=== PATIENT | male | born 1955 | race Caucasian/White ===

== ENCOUNTER → 2022-03-11 08:59 | Outpatient (BNVA) | payer MEDICARE, SELFPAY | PROVIDERS: Visit Provider Student in an Organized Health Care Education/Training Program | DX: E66.01 Morbid (severe) obesity due to excess calories (principal); M17.11 Unilateral primary osteoarthritis, right knee; M17.12 Unilateral primary osteoarthritis, left knee | CPT/HCPCS: 99203 ==

== ENCOUNTER → 2022-03-23 09:40 | Outpatient (BNVA) | payer MEDICARE, SELFPAY | PROVIDERS: PCP Nurse Practitioner Family; Referring Provider Nurse Practitioner Family; Visit Provider Physician Assistant | DX: M17.11 Unilateral primary osteoarthritis, right knee (principal); M17.12 Unilateral primary osteoarthritis, left knee | CPT/HCPCS: 20610; J3304 ==

== ENCOUNTER → 2022-07-26 08:36 | Outpatient (BNVA) | payer MEDICARE, SELFPAY | PROVIDERS: PCP Nurse Practitioner Family; Referring Provider Nurse Practitioner Family; Visit Provider Physician Assistant | DX: M17.11 Unilateral primary osteoarthritis, right knee (principal); M17.12 Unilateral primary osteoarthritis, left knee | CPT/HCPCS: 20610; J1040 ==

== ENCOUNTER → 2022-10-25 12:55 | Outpatient (BNVA) | payer MEDICARE, SELFPAY | PROVIDERS: PCP Nurse Practitioner Family; Referring Provider Nurse Practitioner Family; Visit Provider Student in an Organized Health Care Education/Training Program | DX: M17.11 Unilateral primary osteoarthritis, right knee (principal); M17.12 Unilateral primary osteoarthritis, left knee | CPT/HCPCS: 20610; J1040 ==

== ENCOUNTER → 2023-01-24 13:05 | Outpatient (BNVA) | payer MEDICARE, SELFPAY | PROVIDERS: PCP Nurse Practitioner Family; Referring Provider Nurse Practitioner Family; Visit Provider Student in an Organized Health Care Education/Training Program | DX: M17.11 Unilateral primary osteoarthritis, right knee (principal); M17.12 Unilateral primary osteoarthritis, left knee | CPT/HCPCS: 20610; J1040 ==

== ENCOUNTER → 2023-04-29 08:58 | Outpatient (BNVA) | payer MEDICARE, SELFPAY | PROVIDERS: PCP Nurse Practitioner Family; Referring Provider Nurse Practitioner Family | DX: M17.11 Unilateral primary osteoarthritis, right knee (principal); M17.12 Unilateral primary osteoarthritis, left knee | CPT/HCPCS: 20610; J1040 ==

== ENCOUNTER → 2023-08-08 08:15 | Outpatient (BNVA) | payer MEDICARE, SELFPAY | PROVIDERS: PCP Nurse Practitioner Family; Referring Provider Nurse Practitioner Family; Visit Provider Student in an Organized Health Care Education/Training Program | DX: M17.11 Unilateral primary osteoarthritis, right knee (principal); M17.12 Unilateral primary osteoarthritis, left knee | CPT/HCPCS: 20610; J1040 ==

== ENCOUNTER → 2023-11-10 08:17 | Outpatient (BNVA) | payer MEDICARE, SELFPAY | PROVIDERS: PCP Nurse Practitioner Family; Referring Provider Nurse Practitioner Family; Visit Provider Student in an Organized Health Care Education/Training Program | DX: M17.11 Unilateral primary osteoarthritis, right knee (principal); M17.12 Unilateral primary osteoarthritis, left knee | CPT/HCPCS: 20610; J1010 ==

== ENCOUNTER → 2024-02-13 07:53 | Outpatient (BNVA) | payer MEDICARE, SELFPAY | PROVIDERS: PCP Nurse Practitioner Family; Referring Provider Nurse Practitioner Family; Visit Provider Student in an Organized Health Care Education/Training Program | DX: M17.11 Unilateral primary osteoarthritis, right knee (principal); M17.12 Unilateral primary osteoarthritis, left knee | CPT/HCPCS: 20610; J1010 ==

== ENCOUNTER → 2024-05-14 07:48 | Outpatient (BNVA) | payer MEDICARE, SELFPAY | PROVIDERS: PCP Nurse Practitioner Family; Referring Provider Nurse Practitioner Family; Visit Provider Student in an Organized Health Care Education/Training Program ==

== ENCOUNTER → 2024-06-11 07:59 | Outpatient (BNVA) | payer MEDICARE, SELFPAY | PROVIDERS: PCP Nurse Practitioner Family; Referring Provider Nurse Practitioner Family | DX: L03.115 Cellulitis of right lower limb (principal); L97.911 Non-pressure chronic ulcer of unspecified part of right lower leg limited to breakdown of skin; R60.0 Localized edema; E66.9 Obesity, unspecified; M17.11 Unilateral primary osteoarthritis, right knee; M17.12 Unilateral primary osteoarthritis, left knee | CPT/HCPCS: 20610; J1010 ==

== ENCOUNTER → 2024-09-10 07:56 | Outpatient (BNVA) | payer MEDICARE, SELFPAY | PROVIDERS: PCP Nurse Practitioner Family; Referring Provider Nurse Practitioner Family; Visit Provider Student in an Organized Health Care Education/Training Program | DX: L03.115 Cellulitis of right lower limb (principal); M17.11 Unilateral primary osteoarthritis, right knee; M17.12 Unilateral primary osteoarthritis, left knee | CPT/HCPCS: 20610; 99215; J1010 ==

== ENCOUNTER 2025-01-24 09:06 | Outpatient (CLI) | payer MEDICARE, SELFPAY ==
--- NOTE | 2025-01-24 08:45 | DI.RAD_ITS ---
Exam(s) XR KNEE LT 1V XR STANDING ALIGNMENT EXAM: XR STANDING ALIGNMENT and XR knee LT 1 V CLINICAL HISTORY: OA L KNEE. TECHNIQUE: 2D digital imaging was performed. Five images were obtained. COMPARISON: CR JOINT TEAM STANDING ALIGNMENT AP LAT SCHUSS SKYLINE BILAT from 03/11/2015 CR,DX Knee L from 03/20/2019 CR XR KNEE 1-2 VIEWS RIGHT (GENERIC) from 03/20/2019 CR Knee RT from 11/18/2020 FINDINGS: BONES: Evaluation of the hips is limited secondary to patient's body habitus. In the right knee, there is marked narrowing of the lateral femoral tibial joint. There is also narrowing seen medially. Prominent osteophytes are seen at the lateral femoral tibial joint. In the left knee, there is marked narrowing of the lateral femoral tibial joint. Osteophytes are seen predominantly laterally and at the patellofemoral joint. There is a joint effusion present. There are postsurgical changes seen in the distal tibia and fibula. The ankles are well maintained.There is no significant leg length dis crepancy. SOFT TISSUE: Atherosclerotic calcification is present. IMPRESSION: Marked osteoarthritis of the knees. DATA REPOSITORY: RADIATION DOSE DELIVERED:
== END 2025-01-24 09:07 | disposition home or self-care (01) ==
LOC: DIORS 09:06
PROVIDERS: PCP Nurse Practitioner Family; Referring Provider Nurse Practitioner Family; Visit Provider Student in an Organized Health Care Education/Training Program
DX: Z01.818 Encounter for other preprocedural examination (principal); M17.12 Unilateral primary osteoarthritis, left knee; E11.9 Type 2 diabetes mellitus without complications; I48.91 Unspecified atrial fibrillation; Z79.01 Long term (current) use of anticoagulants
CPT/HCPCS: 99024; 73560; 77073

== ENCOUNTER 2025-01-24 12:17 | Outpatient (REF) | payer MEDICARE, SELFPAY ==
[2025-01-24 15:54] LABS: HCT 43.1 % (40.0-50.0); HGB 13.8 g/dL (13.5-17.5); MCH 29.1 pg (27.0-33.0); MCHC 32.0 % (32.0-36.0); MCV 91 fL (80-95); MPV 11.6 fL (8.0-11.0); Platelet Count 238 10^3/uL (130-400); RBC 4.75 10^6/uL (4.36-5.78); RDW 13.9 % (11.8-14.1); RDW-SD 46.6 fL; WBC 7.70 10^3/uL (4.4-10.8)
[2025-01-24 16:01] LABS: Anion Gap 11.4 mmol/L (3-11); BUN 19 mg/dL (7-18); CO2 24.6 mmol/L (21.0-32.0); Calcium 9.6 mg/dL (8.5-10.1); Chloride 105 mmol/L (98-107); Estimated GFR 91.31 (mL/min/1.73m2); Glucose 104 mg/dL (74-106); Potassium 4.2 mmol/L (3.5-5.1); Sodium 141 mmol/L (136-145)
== END 2025-01-24 12:18 | disposition home or self-care (01) ==
LOC: LBN 12:17
PROVIDERS: PCP Nurse Practitioner Family; Visit Provider Student in an Organized Health Care Education/Training Program
DX: M17.11 Unilateral primary osteoarthritis, right knee (principal); Z01.818 Encounter for other preprocedural examination
CPT/HCPCS: 80048; 85027

== ENCOUNTER 2025-02-13 07:46 | Day surgery (SDC) | payer MEDICARE, SELFPAY ==
[2025-02-13] VITALS (28 sets, daily range): BP systolic 102–165; BP diastolic 62–142; PULSE 61–105; RESP 11–20; TEMP 36–36.6; O2SAT 92–98; BMI 50.6
--- NOTE | 2025-02-13 07:31 | PDOC.DSDIS_ITS ---
Date of service: 02/13/25 Discharge Plan Disposition Patient Disposition: Home Condition: Good Discharge Details Reason For Visit: L TKR Attending Provider: Terry Salcedo Primary Care Provider: Emilia Putnam Home Meds and New Rx's Prescriptions: New celecoxib 200 mg capsule 200 mg PO BID Qty: 60 0RF acetaminophen 500 mg tablet 1,000 mg PO TID Qty: 90 3RF pantoprazole 40 mg tablet,delayed release (DR/EC) 40 mg PO DAILY Qty: 14 0RF dexamethasone 4 mg tablet 4 mg PO DAILY Qty: 2 0RF docusate sodium 100 mg capsule 100 mg PO BID PRNQty: 28 0RF gabapentin 300 mg capsule 300 mg PO QHS Qty: 14 0RF oxycodone 5 mg tablet 5 mg PO Q4H PRNQty: 18 0RF Continued losartan 100 mg tablet 100 mg PO DAILY Eliquis 5 mg tablet 5 mg PO BID diltiazem HCl 240 mg capsule,extended release 24hr 240 mg PO DAILY atorvastatin 40 mg tablet 40 mg PO DAILY vitamin B complex [B Complex-Vitamin B12] Tablet 1 tab PO DAILY One-A-Day Men's 50 Plus(vit K) 400-20-370 mcg tablet 1 tab PO BID [id number]-rdac-copper-albert [Citracal-D3 Maximum Plus] 325 mg-12.5 mcg -2.75 mg tablet 1 tab PO BID carvedilol 6.25 mg tablet 6.25 mg PO BID Rx Instructions: must administer with a meal/food furosemide [Lasix] 40 mg tablet 60 mg PO DAILY naltrexone 50 mg tablet 25 mg PO BID bupropion HCl 150 mg tablet sustained-release 12 hr 150 mg PO QAM Discharge Instructions Additional Instructions: Total Knee Discharge Instructions Activity: The most important activity is to walk and to work on gentle motion (both flexion and extension). You should try to take short walks a few times a day. It is important that when resting you work on keeping the knee straight. Avoid putting a pillow behind the knee as this will encourage flexion. Work on range of motion exercises as provided by Physical Therapy. - Start outpatient physical therapy within 2 weeks. - You should wear the MAYURI hose on both legs for 2 weeks. You may remove these at night. You may also use any compression sock in place of the MAYURI hose. - Utilize [employer] to review exercises, see videos on exercises and obtain basic information pertaining to your surgery and your recovery. Dressing: Remove the Kevin wrap by 2 days after your surgery and put on the MAYURI stocking given to you from the hospital. Keep the surgical dressing (underneath the KEVIN wrap) in place for at least one week. After the first week it may be removed and replaced with light gauze and tape or nothing. The wound and dressing may get wet after 3 days but avoid soaking the dressing or otherwise it will need to be changed. Many people prefer covering the dressing with cling wrap (saran wrap) to minimize it from getting soaked. If it gets wet, just pat dry. If it starts to peel off then it will need to be changed. Medications: - You should take Tylenol and anti-inflammatory Celebrex as your primary pain control medications. If the Celebrex is too expensive or not covered, please call the office for another alternative (Advil/Ibuprofen or Naproxen/Aleve) - You have been prescribed a stronger pain medication Oxycodone for breakthrough pain, take as needed as prescribed. - You have also been prescribed a stomach acid reduction agent Pantoprozole to help reduce stomach acid and reflux. - You have been prescribed Gabapentin to take at night for restlessness and nerve pain. - You will be taking your apixaban for DVT prevention unless instructed otherwise. - You have also been prescribed Decadron to take to control post-operative nausea and pain. You will start this tomorrow. - If you have constipation you should take Colace or Miralax (both [id number]-miwtioq). It takes most people 3-4 days to have a bowel movement. Follow-up: 2 weeks If you have any acute concerns or questions, please do not hesitate to contact the office at [phone]. You may contact Dr. Salcedo with any questions after hours through the hospital at [phone] or on his cell phone at [phone]. Stand Alone Forms: Anesthesia Discharge InstRosie Asif.Nerve Block Instructions, Jacob Marinelli ([facility]) Referrals: Terry Salcedo MD [ [facility] STAFF PHYSICIAN, Orthopaedic Surgical] - 02/25/25 9:30 am Equipment/Supplies: Walker Activity:: Activity as Tolerated Shower/Bathe:: 72 hours Diet:: As Tolerated Discharge Orders Discharge Orders: Discharge Order (Routine); Ordered 02/13/25 Ordered By: Jack Leos DS: Diagnosis Discharge Diagnosis (1) Osteoarthritis of left knee: Status: Acute
[2025-02-13] MEDS: Gabapentin 300 MG CAP PO (09:22)
[2025-02-13] MEDS: Acetaminophen 500 MG TAB 1000 MG PO (09:22)
[2025-02-13] MEDS: Celecoxib 200 MG CAP 400 MG PO (09:22)
--- NOTE | 2025-02-13 10:02 | W.ANESPRE ---
General Info Date of Service Date Performed: 02/13/25 Height: 6 ft 4 in Weight: 188.7 kg Body Mass Index (BMI): 50.6 Surgical Procedure: Operation Date: 02/13/25 11:55 Proposed Procedure Side Surgeon p Knee Total Arthroplasty Left Terry Salcedo MD Meds Allergies and Home Medications Allergies Allergy/AdvReac Type Severity Reaction Status Date / Time No Known Allergies Allergy Verified 02/13/25 08:54 Home Medication ?Medication ?Instructions ?Recorded apixaban 5 mg tablet (Eliquis) 5 mg PO BID 03/11/22 atorvastatin 40 mg tablet 40 mg PO DAILY 03/11/22 calcium 325 mg-vit D3 12.5 1 tab PO BID 03/11/22 mcg-zinc 2.75 pl-ehodix-pddedqszx tablet (Citracal-D3 Maximum Plus) carvedilol 6.25 mg tablet 6.25 mg PO BID 03/11/22 diltiazem HCl 240 mg 240 mg PO DAILY 03/11/22 capsule,extended release 24 hr furosemide 40 mg tablet (Lasix) 60 mg PO DAILY 03/11/22 losartan 100 mg tablet 100 mg PO DAILY 03/11/22 ocwzvmsnxwgp-mgd-ihlch acid-vit 1 tab PO BID 03/11/22 K-lycop 400 mcg-20 mcg-370 mcg tablet (One-A-Day Men's 50 Plus (with vitamin K)) vitamin B complex (B 1 tab PO DAILY 03/11/22 Complex-Vitamin B12 tablet) naltrexone 50 mg tablet 25 mg PO BID 07/26/22 bupropion HCl 150 mg tablet,12 hr 150 mg PO QAM 04/29/23 sustained-release acetaminophen 500 mg tablet 1,000 mg (2 x 500 mg) PO TID #90 02/13/25 tabs celecoxib 200 mg capsule 200 mg PO BID #60 caps 02/13/25 dexamethasone 4 mg tablet 4 mg PO DAILY #2 tabs 02/13/25 docusate sodium 100 mg capsule 100 mg PO BID PRN #28 caps 02/13/25 gabapentin 300 mg capsule 300 mg PO QHS #14 caps 02/13/25 oxycodone 5 mg tablet 5 mg PO Q4H PRN #18 tabs 02/13/25 pantoprazole 40 mg tablet,delayed 40 mg PO DAILY #14 tabs 02/13/25 release Current Visit Medications: Current Medications Generic Name Dose Route Start Last Admin Trade Name Jose Antonio PRN Reason Stop Dose Admin Acetaminophen 1,000 mg 02/13/25 06:00 02/13/25 09:22 Acetaminophen 500 Mg Tab PO 02/13/25 23:59 1,000 mg PREOP RIGOBERTO Administration Acetaminophen 1,000 mg 02/13/25 07:30 Acetaminophen 500 Mg Tab PO 03/15/25 08:29 TID PRN Analgesia Celecoxib 400 mg 02/13/25 06:00 02/13/25 09:22 Celecoxib 200 Mg Cap PO 02/13/25 23:59 400 mg PREOP RIGOBERTO Administration Docusate Sodium 100 mg 02/13/25 07:30 Docusate Sodium 100 Mg Cap PO 03/15/25 07:29 BID PRN PRN Constipation Gabapentin 300 mg 02/13/25 06:00 02/13/25 09:22 Gabapentin 300 Mg Cap PO 02/13/25 23:59 300 mg PREOP RIGOBERTO Administration Ringer's Solution 1,000 mls @ 80 mls/hr 02/13/25 06:00 IV 02/13/25 23:59 INFUSION RIGOBERTO Cefazolin Sodium 3,000 mg/ 100 mls @ 200 mls/hr 02/13/25 06:00 Sodium Chloride IV 02/13/25 23:59 PREOP RIGOBERTO Tranexamic Acid/Sodium Chloride 1,000 mg in 100 mls @ 600 mls/hr 02/13/25 06:00 IVPB 02/13/25 23:59 PREOP RIGOBERTO IV Miscellaneous Supplies 1 each 02/13/25 06:00 Iv Access IV 02/13/25 23:59 DIRECTED RIGOBERTO Ondansetron HCl 4 mg 02/13/25 07:30 Ondansetron 4 Mg/2 Ml Vial IVP 03/15/25 07:29 Q6H PRN PRN Nausea Oxycodone HCl 0 mg 02/13/25 07:30 Oxycodone 5 Mg Tab PO 03/15/25 07:29 Q3H PRN PRN Pain Polyethylene Glycol 17 gm 02/13/25 07:30 Polyethylene Glycol 3350 17 Gm Packet PO 03/15/25 07:29 BID PRN PRN Constipation Sodium Chloride 0 ml 02/13/25 06:00 Normal Saline Flush 10 Ml Syr IV 02/13/25 23:59 PRN PRN Sodium Chloride 0 ml 02/13/25 06:00 Normal Saline 10 Ml Vial IJ 02/13/25 23:59 DIRECTED PRN Sterile Water 0 ml 02/13/25 06:00 Water,Injection,Sterile 10 Ml Vial IJ 02/13/25 23:59 DIRECTED PRN Allergy/Medication Comments:: Noted Atenolol allergy on his H&P from [facility], per patient has had atenolol since with no negative side effects. PFSH Active Problems Active Problems: Problem Status Onset Code Venous stasis ulcer of ankle limited to breakdown of skin Acute I83.003, L97.301 Osteoarthritis of patellofemoral joints of both knees Acute M17.0 Osteoarthritis of right knee Acute M17.11 Osteoarthritis of left knee Acute M17.12 Medical History Medical History VASQUEZ (acute kidney injury) Cellulitis Appendicitis Pneumonia Tubular adenoma High serum ferritin Vitamin D insufficiency Impaired glucose tolerance EDZ (obstructive sleep apnea) residential current use of anticoagulant Afib Morbid obesity HTN (hypertension) Surgical History Surgical History Hx of appendectomy Hx of cholecystectomy H/O gastric bypass H/O colonoscopy Tobacco Smoking/Tobacco Use Status: Former Tobacco Use Alcohol Alcohol Intake: current Alcohol intake frequency: holidays/special occasions only Alcohol type: hard liquor Substance Use Substance use: Daily Substance use type: marijuana Details: 02/13/25: edible last night for pain management Vital Signs and Lab Results Vital Signs Most Recent Vital Signs in EMR: Most Recent Vital Signs Temp Pulse Resp BP Pulse Ox 36.6 C 69 16 129/72 98 02/13/25 08:42 02/13/25 08:42 02/13/25 08:42 02/13/25 08:42 02/13/25 08:42 Lab Results Complete Blood Count: WBC, (4.4-10.8) 7.70 10^3/uL 01/24/25, 09:30 RBC, (4.36-5.78) 4.75 10^6/uL 01/24/25, 09:30 Hgb, (13.5-17.5) 13.8 g/dL 01/24/25, 09:30 Hct, (40.0-50.0) 43.1 % 01/24/25, 09:30 Plt Count, (130-400) 238 10^3/uL 01/24/25, 09:30 Complete Metabolic Panel: Sodium, (136-145) 141 mmol/L 01/24/25, 09:30 Potassium, (3.5-5.1) 4.2 mmol/L 01/24/25, 09:30 Chloride, (98-107) 105 mmol/L 01/24/25, 09:30 Carbon Dioxide, (21.0-32.0) 24.6 mmol/L 01/24/25, 09:30 BUN, (7-18) 19 mg/dL H 01/24/25, 09:30 Creatinine, (0.70-1.30) 0.9 mg/dL 01/24/25, 09:30 Est GFR (CKD-EPI 2020), (mL/min/1.73m2) 91.31 01/24/25, 09:30 Calcium, (8.5-10.1) 9.6 mg/dL 01/24/25, 09:30 Glucose, (74-106) 104 mg/dL 01/24/25, 09:30 Anesthesia Assessment and Plan Anesthesia History Personal History: No History of Anesthesia Complications Family History: No Family History of Anesthesia Complications Exercise Tolerance Exercise Tolerance: Metabolic Equivalents>4 Pertinent Negatives Pertinent Negatives: No Symptoms of GERD, No Major Cardiovascular Symptoms or Complaints, No Major Pulmonary Symptoms or Complaints and No History of CVA/TIA Cardiac & Pulmonary Exam Cardiac Exam: Normal S1/S2 Heart Sounds Pulmonary Exam: Clear Bilateral Breath Sounds Implantable Cardiac Device Does patient have a Pacemaker or an ICD?: No Airway Exam Known Difficult Airway: No Mallampati Class: 2 Mouth Opening: Normal (> 3cm) Thyromental Distance: Greater than 3 cm Neck Range of Motion: Full ROM Neck Circumference: Normal Teeth Condition: Generalized Poor Dentition, Loose or Chipped and Dental Caries ASA Classification ASA Score: ASA 3 Emergency Case?: No NPO Status NPO Status: NPO Clears >2 hours, Solids >8 hours Anesthesia Plan Resuscitation Status: Full Code Anesthesia Technique: Spinal Anesthesia Airway Planned: Natural Airway (GETA as backup) Pain Management: Surgeon and patient request nerve block Monitors Used: Standard Monitors Preoperative Comments:: Increased body habitus, discussed risk and plans. Wishes to proceed with spinal as first attempt.
[2025-02-13] MEDS: Lactated Ringers 1,000 ML 80 ML IV (10:08)
--- NOTE | 2025-02-13 10:53 | W.ANESNERVE ---
Nerve Block Single Injection Procedure Date and Time Date Performed: 02/13/25 Procedure Start: 10:38 Location Where Procedure Performed Procedure Location: Day Surgery Unit Reason Performed: Postoperative Analgesia Requesting Provider: Terry Salcedo Timeout Performed Timeout Performed: Yes Monitoring Used ECG, Blood Pressure and SpO2 Sterility Sterility: Hand Hygiene, Surgical Cap, Surgical Mask, Sterile Gloves and Chlorhexidine Sedation Given During Procedure Sedation Given (Indicate Dose Given): Precedex IV Dose:: 8 mcg Patient Mental Status Patient Mental Status: Sedate with meaningful communication Nerve Block 1st Nerve Block: Laterality: Left Block Type: Adductor Canal Ultrasound Image Saved?: Yes Needle / Catheter Used: 100mm SonoPlex II Local Anesthetic Bolus (Indicate Dose Given): Lidocaine used for local infiltration of skin, Injected in 3-5ml increments after negative blood aspiration, Bupivacaine 0.25% Dose:: 10 ml and Exparel Dose:: 10 ml Additives (Indicate Dose Given): None Ultrasound: Sterile probe cover and gel used Nerve Stimulator: Supplement to Ultrasound use and No twitch or parasthesia noted < 0.5 mA Paresthesia: None Procedure Tolerated: No Complications and Patient tolerated well Procedure Outcome: Successful Performed By: Jan Baum 2nd Nerve Block: Laterality: Left Block Type: Other (Anterior femoral cutaneous nerves) Ultrasound Image Saved?: Yes Needle / Catheter Used: 100mm SonoPlex II Local Anesthetic Bolus (Indicate Dose Given): Lidocaine used for local infiltration of skin, Injected in 3-5ml increments after negative blood aspiration and Bupivacaine 0.25% Dose:: 5 ml Additives (Indicate Dose Given): None Ultrasound: Sterile probe cover and gel used Nerve Stimulator: Supplement to Ultrasound use and No twitch or parasthesia noted < 0.5 mA Paresthesia: None Procedure Tolerated: No Complications and Patient tolerated well Procedure Outcome: Successful Performed By: Jan Baum
[2025-02-13] MEDS: ceFAZolin 3,000 MG in Normal Saline 100 ML 200 MG IV (11:13)
[2025-02-13] MEDS: TRANEXAMIC ACID/SOD. CHL. 1,000 MG/100 ML BAG 600 MG IVPB (11:23)
[2025-02-13] MEDS: fentaNYL 100 MCG/2 ML VIAL IVP ×2 (13:27→13:38)
[2025-02-13] MEDS: oxyCODONE 5 MG TAB PO (14:34)
[2025-02-13] MEDS: Tranexamic Acid 650 MG TAB 1300 MG PO (14:34)
--- NOTE | 2025-02-13 14:34 | W.PM.OP ---
Operative Note Operative Note PRE-OP DIAGNOSIS: Left Knee Osteoarthritis POST-OP DIAGNOSIS: same PROCEDURE: Left Total Knee Replacement with Intraoperative Navigation SURGEON: Terry Salcedo AREA INTELLIGENCE TECHNICIAN: Julee Leos ANESTHESIA TYPE: General LMA/ETT and Spinal Refer to Anesthesia Record ESTIMATED BLOOD LOSS: 150 PATHOLOGY: none sent TOURNIQUET TIME: 0 COMPLICATIONS: None Patient was transported to: PACU Patient's condition: stable Implants: 1. Depuy Attune Cementless Cruciate Retaining Femoral Component, Size 10 2. Depuy Attune Cementless Fixed Bearing Tibial Component, Size 10 3. Depuy Attune 10x6mm CR/FB Poly Indications: I have seen Mt in clinic for symptoms of bilateral knee arthritis, confirmed with radiographic findings. He has exhausted nonoperative methods and was having significant limitations in daily function and desired better function and less pain. I discussed the technical details of a left knee replacement. I explained the risks of the procedure to include, but not limited to, bleeding, infection, pain, stiffness, fracture, damage to nerves and vessels, damage to muscles and tendons, loosening, need for repeat procedure, blood clot and cardiopulmonary demise. Despite these risks, Mt elected to proceed. Findings: There was significant signs of arthritis throughout the knee. Procedure Description: Mt was greeted in the preoperative holding area where the correct side was identified and marked. The consent was reviewed with the patient and signed. The history and physical was updated. All questions were answered. Preoperative mediacations were administered: Acetaminophen 1000mg, Celebrex 400mg, and Gabapentin 300mg. An adductor canal block was then administered by the anesthesia team in the [facility]. He was taken back to the operating room. A spinal anesthestic was then administered. The patient was placed into the supine position on the operating room table. Posts were placed for positioning during the procedure. All bony prominences were well padded. Prophylactic antibiotics in the form of Cefazolin were administered. 1g of Tranxemic Acid was given intravenously within 30 minutes of incision. The left leg was then prepped with Chloraprep and draped in a standard fashion with impervious stockinette. A second prep with Chloraprep was performed prior to application of Iodine impregnated skin protection. A timeout to confirm correct identity, side and site, procedure, allergies, anesthesia, and medical concerns was performed. With the knee in some flexion, a midline incision was made overlying the knee. Unfortunately, at this time he was noted to be responding to this approximately, although with no foot motion. Thus it was deemed that the spine was not actively set up and he was converted to a general anesthetic as well. Then, full thickness skin flaps were raised once the extensor mechanism was encountered. These were raised medially and laterally. Any bleeding was controlled with electrocautery. Once the extensor mechanism was fully exposed, a medial parapatellar arthrotomy was performed in a flexed position. All bleeding from the arthrotomy and the geniculate arteries was coagulated. A medial subperiosteal peel was performed with electrocautery to the midcoronal plane. The fat pad was removed while keeping the patellar tendon protected. The anterior distal femur synovium was removed for later visualization. The ACL and PCL were resected and the anterior horn of the lateral meniscus was transected. The knee was then flexed with the patella everted. Large osteophytes from the tibia were removed. Large osteophytes from the femur were removed. Most of the lateral compartment. A single starting pin was then placed 1cm anterior to the PCL insertion and the notch in the direction of the femoral head. The OrthoAlign device was applied over the pin. It was oriented to be in line with the epicondylar axis and the trochlear groove. It was then pinned into place. The navigation computer was then turned on and calibrated. The distal femur cut was set at 0 degrees varus and 3 degrees flexion. The distal femur cutting guide then was positioned for a 9mm cut. The distal femur was cut with an oscillating saw while protecting the soft tissues. The tibia was then addressed. The OrthoAlign device was placed over the tibial tubercle and medial tibia and secured into position. Once again, OrthoAlign was calibrated and then set for a 1.5 degree varus cut and 5 degrees of posterior slope. With this locked into position, the cut thickness stylus was used to assess cut thickness. The lateral side, most involved side, was set for a 3mm cut. This was then held in position and pinned into place with 2 additional pins and a cross pin for stability. The medial and lateral collateral ligaments were protected and the cut was performed. With this completed, it was assessed and noted to be of appropriate dimensions. The guide and OrthoAlign was removed. A spacer block was inserted and the knee was brought into extension to ensure enough space was present. . The Orthoalign gap balancing device was then placed in extension. This was used to ensure that the ligaments were properly balanced with up to 2 to 3 mm laxity laterally compared medially. The extension gap was measured as 18mm. The knee was then brought into 90 degrees of flexion and the ligament back end architect was once again placed. Under the same amount of force the flexion gap was measured. The Attune specific jig was placed and the flexion gap was made to match the extension gap. The femur was then sized as a size 10. The 4-in-1 cutting guide was the placed. An marylu wing was used to confirm appropriate position of the anterior cut to avoid notching. This cutting guide was ensured to be flush on the cut surface and then pinned into place with headed pins. While protecting the soft tissues, quad tendon, and collateral ligaments, the anterior and posterior cuts were performed with a saw. The central two pins were removed and the posterior and anterior chamfers were cut next. The notch-cutting guide was placed. This was pinned to lateralize the femoral component as much as possible while keeping it flush on the cut surface. This was then pinned into position. A saw was used to make the notch cut. A rasp smoothed the cut surfaces. The medial and lateral menisci were removed. A trial femoral component was then inserted, impacted down to the cut surfaces, and the lug holes were drilled. A provisional trial tibial component was placed and the knee was brought through range of motion. The polyethylene was trialed until there was good flexion and extension with excellent stability to the medial and lateral collaterals. The patella was tracking without thumbs. A size 6mm polyethylene component provided the best range of motion and stability with less than 2mm gapping with medial and lateral stress and full extension without significant hyperextension. The tibial cut surface was fully exposed. The tibia was then sized as a 10. The tibia had been previously marked during trialing to correspond to the center of the tibial component to help with rotation. The trial was aligned to this julee, approximately rotated to the medial 1/3rd of the tibial tubercle. The trial was pinned into place. The tibia was prepared with a reamer and a keel punch and lug holes. The trial components were removed. The final components were opened on the back table. The periosteal and capsular tissues, especially posteriorly, around the knee were then systematically injected with a periarticular cocktail consisting of 246mg of Ropivacaine, 0.5mg of Epinephrine, 0.08mg of Clonidine, and 30mg of Ketorolac, diluted to 100cc. Then, the knee components were placed. Starting with the tibial component, the tibia was subluxed anteriorly and the lug holes of the component were lined up. The tibia was then impacted with an impactor and mallet until the tibial component was in contact with the tibia. Then, the femoral component was inserted. The lug holes were aligned and the component was impacted into position. The final polyethylene component was inserted. The knee was irrigated with Surgiphor Betadine solution. This was allowed to sit in the knee for 3 minutes and then it was thoroughly irrigated out with saline. The knee was then taken through range of motion. The patella was tracking with a no-thumbs technique. A complete synovectomy of the patella was performed. Any prominence to the lateral facet was resected with a rongeur. The capsule was then reapproximated with a No. 1 Vicryl at multiple locations. The capsule was finally closed with a No. 2 Stratafix, barbed suture. Deep tissues were then reapproximated with 0 Vicryl and 2-0 Vicryl. The skin was closed with a running 3-0 Monocryl in a subcuticular fashion. This was reinforced with skin glue. A Mepilex silver dressing was applied along with a [id number] EJ wrap. A CryoCuff was applied. Mt was transferred to the hospital bed without difficulty an suffering no apparent complication. Mt has a good prognosis. Physical therapy will start today and without restrictions, weight-bearing as tolerated. His home dose of apixaban twice daily will be used for DVT prophylaxis. Date of Procedure: 02/13/25
--- NOTE | 2025-02-13 14:56 | IN_ITS ---
PT Notes Visit Reasons: L TKR Physical Therapy Day Surgery Initial Evaluation Date: 02/13/2025 Referring Doctor: FABIAN Mcmanus PT Orders: PT CONSULT: S/P Ortho Surgery Precautions: WBAT through the L LE with AD. Patient Profile/Admitting Diagnosis: Mt is a 69-year-old male with degenerative joint disease of the left knee and is status post left total knee arthroplasty on postoperative day 0. PMHX: All Active Problems Venous stasis ulcer of ankle limited to breakdown of skin (Acute) Osteoarthritis of patellofemoral joints of both knees (Acute) Osteoarthritis of right knee (Acute) Steroid injection: 09/10/24; 11/10/23 08/08/2023; 04/29/2023; 07/26/2022; 10/25/22 Zilretta injection: 03/23/2022 Multiple previous steroid injections Osteoarthritis of left knee (Acute) Steroid injection: 09/10/24; 11/10/23,08/08/2023; 04/29/2023; 07/26/2022; 10/25/22 Zilretta injection: 03/23/2022 Multiple previous steroid injections Medical History VASQUEZ (acute kidney injury) Cellulitis Appendicitis Pneumonia Tubular adenoma High serum ferritin Vitamin D insufficiency Impaired glucose tolerance DEZ (obstructive sleep apnea) skilled nursing current use of anticoagulant Afib Morbid obesity HTN (hypertension) Surgical History Hx of appendectomy Hx of cholecystectomy H/O gastric bypass H/O colonoscopy Social History/Home Situation: Lives with in a priavte home with 13 steps to enter, rail on the L side going up. There is another 13 steps to the bedroom. Equipment Owned/DME: 4[employer], SPC Subjective: Verbalized pain in the L knee up to 8-9/10 at rest and with movement Objective: General Observation: EJ wraps to L LE. Cryocuff to L knee. TEDS to R LE. [place] present throughout. Mental Status: A and O x 4 Pain: 8-9/10 at rest and with movement ROM: Right Lower Extremity: Hip flexion WFL. Hip abduction WFL. Knee flexion WFL. Ankle dorsiflexion WFL. Ankle plantarflexion WFL. Left Lower Extremity: Hip flexion WFL. Hip abduction WFL. Knee flexion 0-100 degrees. Ankle dorsiflexion WFL. Ankle plantarflexion WFL. Strength: Right Lower Extremity: Hip flexors 5/5. Hip abductors 5/5. Knee flexors 5/5. Knee extensors 5/5. Ankle dorsiflexors 5/5. Ankle plantarflexors 5/5. Left Lower Extremity:Hip flexors 4/5. Hip abductors 4/5. Knee flexors 3-/5. Knee extensors 4-/5. Ankle dorsiflexors 5/5. Ankle plantarflexors 5/5. Sensation: Intact as to pain and light pressure in bilateral lower extremities Bed Mobility/Transfers: Minimal cueing provided for use of B hands as needed for support, movement sequence, AD management, and posture to reduce fall risk and minimize pain report Sit to stand stand by assist Stand to sit stand by assist with FWW Bed to chair stand by assist Gait: Facilitated safe and correct performance of level surface ambulation covering a distance of 100 feet using a bariatric front-wheeled walker fitted for him by PT prior to activity. Reported pain creep up at end of activity but patient persisted until completion. Stand by assist only with minimal cueing provided for step sequence, AD management and posture. Stairs: Guided patient with safe negotiation of 3 x 4 inch steps and 2 x 6 inch steps while holding onto 1 rail and using a single-point cane with the other hand requiring contact-guard assist and minimal verbal cueing for hand placement, increased flexion on the left during each ascent, weight distribution, and single-point cane management to minimize pain reported and reduce fall risk. Balance: Static Sitting: Normal Dynamic Sitting: Normal Static Standing: Fair Dynamic Standing: Fair Special Tests: Mobility Limitations Standardized Measure [facility] 6 clicks Basic Mobility Inpatient Short Form: Raw Score: 23 CMS Score: 11% deficit Informed Consent/Education: Patient instructed in purpose of PT consult. Packet containing TKA exercise protocol has been given to patient. Education and training on initial set of exercises that can be done at home have been completed with patient. Trained patient with correct performance of exercises below to maximize motor control, joint flexibility, soft tissue extensibility of the L knee musculature: Access Code: [email or web address] URL: [email or web address] Date: 02/13/2025 Prepared by: Tricia Steinberg Exercises - Supine Quad Set - 1 x daily - 7 x weekly - 1 sets - 10 reps - 5 hold - Supine Heel Slide - 1 x daily - 7 x weekly - 1 sets - 10 reps - 5 hold - Supine Ankle Pumps - 1 x daily - 7 x weekly - 1 sets - 10 reps - 5 hold - Small Range Straight Leg Raise - 1 x daily - 7 x weekly - 1 sets - 10 reps - 5 hold - Seated March - 1 x daily - 7 x weekly - 1 sets - 10 reps - 5 hold Assessment: Patient requires the use of a front-wheeled walker for all mobility ADl performance to maximize independence and reduce fall risk. Patient presents with clinical signs and symptoms consistent with current/admitting diagnoses that have resulted to mobility limitations, gait instability, generalized weakness, and impairment of motor control as demonstrated by the following impairment level findings: 1. Decreased strength to left knee major muscle groups 2. Impaired standing balance 3. Limitation of joint range of motion in left knee Impairments are contributing to the following functional limitations: 1. Inability to safely ambulate without assistive device 2. Increase completion time for mobility ADL performance 3. Increased fall risk Patient is assessed as a 21616 moderate complexity based on the following: History: 69-year-old male with impairment level findings, functional limitations, and past medical history as indicated above Examination: Demonstrable impairment in strength, balance, and mobility level with underlying impairments and functional limitations as documented above Presentation: Evolving Decision Makin moderate complexity Goals: N/A. PT evaluation and 1-2 treatment sessions only for functional mobility training using recommended AD and for HEP instruction. Plan of Care/Treatment Plan: N/A. PT evaluation and 1-2 treatment session only for functional mobility tr aining using recommended AD and for HEP instruction. DISCHARGE RECOMMENDATIONS: Home when medically cleared by orthopedic surgeon. Recommend outpatient PT services in order to optimize functional mobility outcomes and facilitate return to independent community ambulation without an assistive device. TREATMENT CODE/TIME: 27870 x 20 minutes for 1 unit, 55131 x 30 minutes for 2 units (14:56-15:46). Thank you for the opportunity to participate in the care of this patient. Tricia Steinberg PT, DPT, CLT [facility] [place], [place]
--- NOTE | 2025-02-13 15:02 | ANES.POST_ITS ---
Postoperative Evaluation Date, Time and Location Date Performed: 02/13/25 Time Performed: 15:02 Patient Location: Day Surgery Unit Vital Signs Most Recent Imported Vital Signs: Most Recent Vital Signs Temp Pulse Resp BP Pulse Ox 36 C L 74 18 165/78 H 96 02/13/25 14:35 02/13/25 14:35 02/13/25 14:35 02/13/25 14:35 02/13/25 14:35 Pain Score Most Recent Pain Score: Most Recent Pain Score Pain Level 10 02/13/25 14:35 Assessment Mental Status: Awake (Alert & Oriented to Patient Baseline) Airway and Respiratory Function: Patent airway with normal (patient baseline) respiratory exam Cardiovascular Function: Hemodynamically Stable Hydration Status: Adequately Hydrated Nausea & Vomiting: No Nausea or Vomiting Pain: Pain is tolerable per patient (Pain was 10/10 but is steadily improving since recieving PO pain meds and will be working with PT shortly. ) Peripheral Nerve Block: Regional nerve block not resolved at time of post ope rative discharge
== END 2025-02-13 15:59 | disposition home or self-care (01) ==
LOC: SUR 07:47
PROVIDERS: PCP Nurse Practitioner Family; Visit Provider Student in an Organized Health Care Education/Training Program
PROC: (CPT 27447; principal; 2025-02-13 11:45)
DX: M17.12 Unilateral primary osteoarthritis, left knee (principal); G89.18 Other acute postprocedural pain
CPT/HCPCS: 20985; 27447; 64447; 64450; 97162; 97530; C1776; J0665; J0666; J0690; J1100; J2371; J2401; J2405; J2704; J3010; J3475

== ENCOUNTER 2025-02-25 10:16 | Outpatient (CLI) | payer MEDICARE, SELFPAY ==
--- NOTE | 2025-02-25 08:45 | DI.RAD_ITS ---
Exam(s) XR KNEE LT 1V EXAM: XR KNEE LT 1V CLINICAL HISTORY: 1ST POST OP S/P L TKA. TECHNIQUE: 2D digital imaging was performed. COMPARISON: CR XR STANDING ALIGNMENT from 01/24/2025 CR XR STANDING ALIGNMENT from 02/25/2025 FINDINGS: Single lateral view of the left knee Satisfactory position alignment of the components of the prosthesis. No fracture or loosening evident on this single view. On the lateral view there is a thin linear wire like this may represent a foreign body. Density projected over the distal metaphysis of the femur. IMPRESSION: Satisfactory appearance of the left knee prosthesis on this lateral view. Other significant finding as above. DATA REPOSITORY: RADIATION DOSE DELIVERED:
--- NOTE | 2025-02-25 08:45 | DI.RAD_ITS ---
Exam(s) XR STANDING ALIGNMENT EXAM: XR STANDING ALIGNMENT CLINICAL HISTORY: 1ST POST OP S/P L TKA. TECHNIQUE: 2D digital imaging was performed. COMPARISON: CR XR STANDING ALIGNMENT from 01/24/2025 FINDINGS: There has been interval placement of a left knee prosthesis which appears satisfactory. There again noted advanced degenerative changes in the opposite-right knee including [id number] narrowing of the lateral compartment and moderate narrowing of the medial compartment. Hips are underexposed; difficult to evaluate. Left hip appears unremarkable. Right hip exhibits some degenerative change, unchanged. There also degenerative changes in the right ankle noted. No obvious degenerative changes in the left ankle. IMPRESSION: As above. DATA REPOSITORY: RADIATION DOSE DELIVERED:
== END 2025-02-25 10:17 | disposition home or self-care (01) ==
LOC: DIORS 10:17
PROVIDERS: PCP Nurse Practitioner Family; Referring Provider Nurse Practitioner Family; Visit Provider Physician Assistant
DX: Z47.1 Aftercare following joint replacement surgery (principal); Z96.652 Presence of left artificial knee joint; M25.562 Pain in left knee
CPT/HCPCS: 99024; 73560; 77073

== ENCOUNTER → 2025-03-25 08:41 | Outpatient (BNVA) | payer MEDICARE, SELFPAY | PROVIDERS: PCP Nurse Practitioner Family; Referring Provider Nurse Practitioner Family; Visit Provider Physician Assistant | DX: Z47.1 Aftercare following joint replacement surgery (principal); Z96.652 Presence of left artificial knee joint | CPT/HCPCS: 99024 ==

== ENCOUNTER → 2025-05-16 08:34 | Outpatient (BNVA) | payer MEDICARE, SELFPAY | PROVIDERS: PCP Nurse Practitioner Family; Referring Provider Nurse Practitioner Family; Visit Provider Student in an Organized Health Care Education/Training Program | DX: Z47.1 Aftercare following joint replacement surgery (principal); Z96.652 Presence of left artificial knee joint; M65.341 Trigger finger, right ring finger | CPT/HCPCS: 20600; J1010 ==